=== PATIENT | male | born 1965 | race Caucasian/White ===

== ENCOUNTER 2016-08-02 05:17 | Inpatient (IN) | payer BC ==
[~2016-08-02] VITALS: Ht 182.9 cm; Wt 136.5 kg
--- NOTE | ~2016-08-02 | O ---
[facility] [place] [address] OPERATIVE REPORT Name: DONNA CERDA Room #: 417-I ADM IN M.R.#: [id number] Admission: 08/02/16 Attend Phys: Giovani Copeland MD, Discharge: Date of : 61 Report #: [id number] THIS REPORT FOR: //name// CC: Kena Copeland DATE OF SERVICE: 08/07/2016 PREOPERATIVE DIAGNOSES: Indwelling external tissue vp account director, status post complex abdominal wall reconstruction with bilateral component separation, adjacent tissue transfer, and utilization of biomesh in repair of an incarcerated recurrent incisional ventral hernia. POSTOPERATIVE DIAGNOSES: Indwelling external tissue vp account director, status post complex abdominal wall reconstruction with bilateral component separation, adjacent tissue transfer and utilization of biomesh in repair of an incarcerated recurrent incisional ventral hernia. PROCEDURE: Removal of external tissue vp account director. SURGEON: Giovani Copeland MD. DERIVATIVES TRADER: RUBIN Whitmore. ANESTHESIA: None. COMPLICATIONS: None. SPECIMENS: All removed external tissue expanders. INDICATIONS: The patient is a 51-year-old obese male, who is status post complex abdominal wall reconstruction procedure for a large incarcerated recurrent incisional ventral hernia with loss of abdominal domain. The patient has done exceptionally well postoperatively with tolerating p.o. intake, having bowel movements and pain control being under good control. As such, indication was for removal of the external tissue expanders postoperatively to evaluate his wound at this time. DESCRIPTION OF PROCEDURE: After explaining the risks, benefits, and alternatives of the procedure and obtaining consent, the patient remained in his hospital room, supine on his hospital bed. After conducting a thorough timeout procedure, verifying correct patient and procedure, the patient's abdomen was prepped and draped in the standard surgical sterile fashion. Sterile suture scissors were used to cut the sutures of the automatic tensioner devices that were laced through the anchors that lined the wound longitudinally. This allowed each of the tensioner devices to be unwoven from the anchors, and then [address] [address] OPERATIVE REPORT Name: DONNA CERDA Room #: 417-I [facility] IN ..#: [id number] Admission: 08/02/16 Attend Phys: Giovani Copeland MD, Discharge: Date of : 61 Report #: [id number] were passed off the field. A sterile staple remover was then used to remove all of the kristine that affixed the anchors to the abdominal wall, and then the anchors themselves were gently lifted out of the abdominal wall in standard fashion. This left a longitudinal midline wound that was healthy without erythema, induration, necrosis, or drainage. The wound was then dressed with sterile Telfa, Medipore tape, and his abdominal binder was replaced. At the end of the procedure, all instrument, needle, and sponge counts were correct. The patient tolerated the procedure without incident, where he remained in his hospital bed in stable condition with no apparent complications. <ELECTRONICALLY SIGNED> By: Giovani Copeland MD, FACS 08/07/16 1228 [id number] Giovani Copeland MD, FACS /nt
--- NOTE | ~2016-08-02 | S ---
[facility] [place] [address] SURGICAL PATH RPT PROCEDURE Name: DONNA CERDA Room #: 417-I ADM IN M.R.#: [id number] Admission: 08/02/16 Date of : 61 Discharge: Report #: [id number] Path Case #: [id number] PATHOLOGY REPORT COLLECTION DATE: 08/02/2016 RECEIVED DATE: 08/02/2016 SUBMITTING PHYS: Dr. Giovani Copeland OTHER PHYS: Dr. Shemar Mejia SPECIMEN(S) RECEIVED: A.Ventral hernia sac B.Old scar and skin (abdomen) * * * * * * * * * * * * FINAL DIAGNOSIS: A. Ventral hernia sac: - Dense fibrovascular connective tissue along with fibroadipose connective tissue showing reactive changes, compatible with hernia sac. B. Skin, old abdominal scar and skin, excision: - Dense collagen underneath skin, compatible with the provided history of scar. (IUV:csd; d/t: 08/05/2016) PATHOLOGIST: Kerry Canas M.D. REPORT ELECTRONICALLY SIGNED BY: Kerry Canas M.D. DATE/TIME: 08/05/2016 16:39 * * * * * * * * * * * * GROSS PATHOLOGY: A. Received in formalin labeled "Donna Cerda, ventral hernia sac," are multiple pieces of fibroadipose tissue with attached fibromembranous tissue measuring 14.9 x 12.2 x 5.5 cm. No nodules or lesions are identified. Beet Flumer tissue is submitted in cassette A1. B. The specimen is received in formalin labeled "Donna Cerda, old abdominal scar and skin". Received are multiple irregular segments of white-escalona, smooth to wrinkled skin with attached yellow-escalona fibroadipose tissue measuring 20.2 x 8.5 x 3.5 cm in aggregate dimensions. Sectioning reveals bright yellow, lobulated cut surfaces throughout with no grossly distinct nodules or lesions. The specimen is submitted representatively in cassette B1. (CAA; 08/02/2016) [address] [address] SURGICAL PATH RPT PROCEDURE Name: DONNA CERDA Room #: 417-I ADM IN M.R.#: [id number] Admission: 08/02/16 Date of : 61 Discharge: Report #: [id number] Path Case #: [id number] CLINICAL HISTORY: Incisional ventral hernia INITIAL CPT CODE(S): A; 01711 B; 98273 Professional services performed by [facility] [address], [place] [address] Technical services performed by [facility] at [address] [place] [address], [facility] [address] [address]. [facility] [address] [place] [address] PHONE: [phone] DIRECTOR: Denver Mclean M.D. * * * END OF REPORT * * *
--- NOTE | ~2016-08-02 | H ---
[facility] [address] [place] [address] HISTORY AND PHYSICAL Name: DONNA CERDA Room #: 417-I ADM IN M.R.#: [id number] Admission: 08/02/16 Attend Phys: Giovani Copeland MD, Discharge: Date of : 61 Report #: [id number] THIS REPORT FOR: //name// For History and Physical, please see office documentation/handwritten note in the patient's medical record. <ELECTRONICALLY SIGNED> By: Giovani Copeland MD, MARILYN 08/05/16 1504 1036 Giovani Copeland MD, FACS /jr
--- NOTE | ~2016-08-02 | O ---
[facility] [place] [address] OPERATIVE REPORT Name: DONNA CERDA Room #: 417-I ADM IN M.R.#: [id number] Admission: 08/02/16 Attend Phys: Giovani Copeland MD, Discharge: Date of : 61 Report #: [id number] THIS REPORT FOR: //name// CC: Kena Copeland DATE OF SERVICE: 08/02/2016 PREOPERATIVE DIAGNOSES: 1. Incarcerated recurrent incisional ventral hernia with loss of abdominal domain. 2. Intermittent abdominal pain. 3. Suspected intra-abdominal adhesions. 4. Morbid obesity with a body mass index of 47.01. 5. Hypertension. POSTOPERATIVE DIAGNOSES: 1. Incarcerated recurrent incisional ventral hernia with loss of abdominal domain. 2. Intermittent abdominal pain. 3. Dense and significant intra-abdominal adhesions. 4. Morbid obesity with a body mass index of 47.01. 5. Hypertension. PROCEDURES PERFORMED: 1. Exploratory laparotomy. 2. Extensive lysis of adhesions lasting 220 minutes. 3. Partial omentectomy. 4. Excisional debridement of ischemic abdominal wall fascia with removal of synthetic foreign body material. 5. Complex abdominal wall reconstruction, with open repair of an incarcerated recurrent incisional ventral hernia in the Britt-Stoppa technique utilizing a biomesh retrorectus underlay, measuring 30 x 30 cm in dimension. 6. Bilateral component separation of the transversus abdominis rectus (TAR) release of the anterior abdominal wall to assist in fascial closure. 7. Adjacent tissue transfer closure of the anterior abdominal wall to achieve complete wound closure with the wound ultimately measuring 38.5 x 34.5 cm in dimension (1328.25 square cm). 8. Placement of an external tissue defensive secondary coach device (DermaClose). 9. This is a Modifier 22 procedure. For extreme difficulty of the procedure secondary to the patient's extremely large recurrent incarcerated incisional ventral hernia that had loss of abdominal domain. This necessitated complex abdominal wall closure techniques with bilateral component separation and adjacent tissue transfers secondary to the necessity of contouring the abdominal wall in this morbidly obese patient with a very thick abdominal wall. This is in addition to the extensive lysis of adhesions of greater than 3 hours, as well [address] [address] OPERATIVE REPORT Name: DONNA CERDA Room #: 417-I ADM IN .R.#: [id number] Admission: 08/02/16 Attend Phys: Giovani Copeland MD, Discharge: Date of : 61 Report #: [id number] as the total operative time being nearly 5-1/2 hours as opposed to the usual 60-75 minute open ventral hernia repair and is owed to the overall severe complexity of the procedure. SURGEON: Giovani Copeland M.D. AUTOMATIC PRESSER: Shemar Reyes M.D. SEC[employer]CHO[employer] CROSSING GUARD: RUBIN Whitmore. ANESTHESIA: General endotracheal anesthesia. ESTIMATED BLOOD LOSS: 100 mL. COMPLICATIONS: None appreciated. SPECIMENS: 1. Excised ischemic abdominal wall fascia and hernia sac with synthetic foreign body material to pathology. 2. Partial omentectomy specimen to pathology. 3. Skin from the anterior abdominal wall to pathology. INDICATIONS: The patient is a 51-year-old morbidly obese male, who has had a complex post-surgical history that began when he underwent exploratory laparotomy for repair of an incarcerated umbilical hernia with mesh. Unfortunately, the patient's mesh caused problems where he reports he had erosion into small bowel, thereby necessitating repeat open exploration with explantation of the mesh and numerous suture repairs of his small bowel. Since that time, the patient developed a very large recurrent incisional ventral hernia with loss of abdominal domain, and after aggressive weight loss during his preoperative workup, indication was for the above-mentioned procedures today with ultimate closure via complex abdominal wall reconstruction procedure. DESCRIPTION OF PROCEDURE: After explaining the risks, benefits, and alternatives of the procedure with the patient in detail in the preoperative holding area and obtaining written consent, the patient was brought to the operating room and placed supine on the operating room table. After conducting a thorough timeout procedure verifying correct patient and procedure, the patient was given general endotracheal anesthesia. Once adequate anesthesia was obtained, his SCDs were hooked up to the pneumatic compression device. He was given a preoperative dose of antibiotics in line with the SCIP protocol. The patient had a Gonzáles catheter placed, and his abdomen was prepped and draped in the standard surgical sterile fashion. A #10 bladed scalpel was used to circumferentially excise his longitudinal midline wound from the subxiphoid location to the suprapubic location. Electrocautery was used to carry this down through skin and subcutaneous tissues and resect the actual skin paddle which [address] [address] OPERATIVE REPORT Name: DONNA CERDA Room #: 417-I [facility] IN ..#: [id number] Admission: 08/02/16 Attend Phys: Giovani Copeland MD, Discharge: Date of : 61 Report #: [id number] was passed off the field as specimen. Electrocautery was then used to carry the incision down through skin and subcutaneous tissues to ensure hemostasis until I arrived upon the level of the abdominal wall. I entered the abdominal wall in this most cephalad position in the subxiphoid location, and a finger was placed through the obvious incisional ventral hernia, which had incarcerated omentum contained within it, and I was able to open the entire fascial incision in a controlled fashion, utilizing a finger in the abdomen to prevent injury to underlying structures. The patient did have numerous loops of small bowel, colon, and omentum plastered to the posterior aspect of the anterior abdominal wall throughout, and I proceeded to open the longitudinal midline wound with delicate dissection to ensure no damage to the underlying structures, which necessitated a combination of electrocautery and Metzenbaum scissor dissection. Any time I was near a loop of bowel, cold dissection was undertaken with Metzenbaum scissors to prevent injury. Once the entire fascial incision was opened down the midline. I proceeded to evaluate the abdominal wall. The patient had one extremely large recurrent incisional ventral hernia, which contained mainly omentum and numerous loops of small bowel. The small bowel was tethered throughout, and I continued lysis of adhesions to free the entirety of the abdominal wall from all adhesions. Once all of the adhesions had been taken down, there was a small amount of nonviable omentum, which was resected with LigaSure impact device and passed off the field as specimen. The patient did have a large amount of synthetic this foreign body material suspected to be both suture material and numerous metal screws consistent with a ProTack device from prior repairs down the midline, and all synthetic material was resected with electrocautery, which included a formal debridement of all ischemic nonviable abdominal wall fascia back to healthy vascularized fascia throughout. All excised tissue was removed and passed off the field as specimen. At this juncture, I proceeded to run the small bowel from the ligament of Treitz distally, in a uptp-duhd-[id number] fashion, taking down all interloop adhesions in the same careful fashion to ensure no enterotomies or serosal defects. Once all of these adhesions were taken down, we proceeded to run the small bowel, three additional times from the ligament of Treitz distally to the ileocecal valve and back again. There was one area of a questionable serosal defect, that we felt was more likely a scar; however, I did elect to oversew this using three separate 3-0 PDS sutures in standard Lembert fashion to be safe. These were placed transversely so as not to narrow the lumen of the bowel in any way. Finger palpation of the bowel at this juncture showed a widely patent lumen. The colon was identified and was healthy throughout. I now proceeded to place Lisa clamps along the fascial edges on both sides and attempts at medial mobilization showed difficulty bringing the fascia together at the midline, and if accomplished, it would be under extreme tension, which is a risk factor for recurrent wound dehiscence and hernia formation. I, therefore, elected to perform a complex abdominal wall closure with bilateral component separation to prevent recurrent herniation. I then proceeded to create circumferential skin flaps along the level of the fascia externally, carrying this back 4 cm in all directions outside the fascial edges, and this was performed ensuring that we [address] [address] OPERATIVE REPORT Name: DONNA CERDA Room #: 417-I ADM IN M.R.#: [id number] Admission: 08/02/16 Attend Phys: Giovani Copeland MD, Discharge: Date of : 61 Report #: [id number] preserved all perforating vessels encountered. Now that I had performed debridement of all nonviable fascia and created skin flaps circumferentially. I elected to proceed with a TAR, bilateral component separation. I utilized electrocautery to incise the posterior rectus sheath 0.5 cm medial to the semilunaris to expose the medial edge of the transversus abdominis muscle bilaterally. Muscle was divided, allowing entrance into the space, which was then dissected as far laterally on both sides as possible. The rectus fascia was then advanced medially, and this was extended approximately 30 cm in craniocaudal dimension bilaterally, and was taken as far laterally as possible. This allowed for significant medial mobilization throughout the entirety of the wound, and we were able to bring the fascia together at the midline at this juncture. I now proceeded to repair the recurrent incarcerated incisional ventral hernia in the Britt-Stoppa fashion after performing the bilateral TAR release. I closed the posterior rectus fascia using looped #1 PDS suture in standard running fashion from inferior to superior aspects. This was run 2/[address] up where I proceeded to start a second loop #1 PDS suture in the subxiphoid location, and ran this inferiorly to where the two sutures met. The needle were cut off, and the two sutures were tied together closing the entire posterior rectus sheath. I now selected a piece of Strattice biologic mesh that measured 30 x 30 cm in dimension. This gave us excellent overlap laterally outside of the hernia defect, as well as at least 5 cm overlap in both the superior and inferior aspects. The mesh was oriented in the retrorectus space in a helene configuration to allow for this excellent overlap, and I proceeded to utilize numerous sutures of #1 PDS to anchor this into place. This was accomplished by placing the sutures through the abdominal wall, through the biologic mesh, back up through the biologic mesh and through the abdominal wall, where the sutures were then individually tied on the patient's right lateral aspect of the midline fascial wound. The mesh had been contoured to the defect at its corners to ensure no rippling of the mesh when the fascial edges were reapproximated down the midline. Each of these transfascial sutures on the right side again were tied down sequentially and attempts at medializing the anterior rectus fascia was carried out while placing the numerous sutures in the left flank to ensure that the biologic mesh remained taut throughout. The 4 sutures placed in the left flank were not tied down but were tagged with hemostats at this juncture. This gave us excellent orientation of the biologic mesh which would be a taut buttress for the retrorectus repair from the TAR component separation bilaterally. I now placed a single 19-Turkish round Aguila-Ruff drain in the space immediately anterior to the biologic mesh and posterior to the anterior rectus fascia, which was then brought out in the suprapubic location. This was anchored to the skin using 2-0 nylon in standard fashion. I now proceeded to close the anterior rectus fascial defect using looped #1 PDS sutures in standard running fashion starting at the position in the suprapubic location and running it superiorly, 2/[address]. I then started a second loop #1 PDS suture in the subxiphoid location and ran this inferiorly to where it met with the other suture, where the needle were cut off, and the sutures were tied together, completing the complex abdominal wall [address] [address] OPERATIVE REPORT Name: DONNA CERDA Room #: 417-I ADM IN M.R.#: [id number] Admission: 08/02/16 Attend Phys: Giovani Copeland MD, Discharge: Date of : 61 Report #: [id number] repair. As I had created skin flaps circumferentially using electrocautery by clearing fascia circumferentially and carried the dissection superiorly, inferiorly, and laterally as much as possible. This left a large abdominal wall defect in this morbidly obese patient that measured 38.5 x 34.5 cm in dimension. All perforating vessels were preserved throughout the dissection as previously stated. I now proceeded to place two additional 19-Turkish round Aguila-Urff drains in the subcutaneous space with the first drain emanating from the right lower quadrant, crossing over the midline and running up the left flank, and the second drain emanating from the left lower quadrant, crossing over the midline, and as low as possible and running up the right flank. Each of these were anchored to the skin and in similar fashion using 2-0 nylon in standard fashion. I now irrigated the subcutaneous space and hemostasis was assured. I now proceeded to close the skin and subcutaneous tissues, which required complex adjacent tissue transfer techniques to allow for complete soft tissue coverage over the abdominal wall. This was secondary to extreme thinning of the patient's skin and subcutaneous tissues where the large hernia had resided. A marking pen was used to werner out appropriate skin resection lines and then a #10 bladed scalpel was used to resect the skin. Electrocautery was used for hemostasis, and all skin that was resected was passed off the field as specimen, along with the initial scar that was resected. There was still a segment of skin. That was quite thin at the mid portion of the longitudinal wound, and as such, I made relaxing incisions internally along the large skin flaps and rotated the subcutaneous tissues medially to cover the anterior fascial repair. I then reapproximated the edges of dermis and placed numerous sutures of 3-0 Vicryl in an inverted interrupted fashion to close the fascial tissues over the underlying fascia. The skin wound was then closed using the Insorb absorbable subcuticular stapling device. The entire midline wound was under a slight amount of tension after closure, and as such, I did elect to place an external tissue defensive secondary coach device (DermaClose) to help obtain complete wound closure down the midline, that was not under any undue tension, which is a significant risk factor for wound dehiscence, especially in this patient with obvious wound healing difficulties and morbid obesity. The DermaClose device was then placed utilizing skin anchors to line the wound longitudinally at 3 cm intervals, circumferentially around the longitudinal skin wound ensuring that we had at least 4 cm of healthy tissue, between the edges of the anchors and the longitudinal midline wound itself. This took 9 anchors on each side, and once all the anchors were placed, they were stapled to the skin using a skin stapler. Telfa gauze was then placed overlying the skin wound, and I proceeded to utilize four separate automatic tensioner devices, which were then laced appropriately through the anchors and ratcheted down. Once these were tightened down and activated, there were locked in place, and this applied uniform tension across the entirety of the longitudinal midline wound, and kept it closed without undue tension at the level of the subcuticular kristine themselves. This allowed us to offload tension at the kristine, and distribute it circumferentially around the wounds 4 cm away on each side. These were then left in place to act as a bolster, and DuoDERM was placed on the skin underneath [address] [address] OPERATIVE REPORT Name: DONNA CERDA Room #: 417-I ADM IN .R.#: [id number] Admission: 08/02/16 Attend Phys: Giovani Copeland MD, Discharge: Date of : 61 Report #: [id number] each of the tensioner devices to prevent maceration of the skin. Sterile dressings were then applied using ABDs, Medipore tape, and an abdominal binder. At the end of extremely lengthy procedure, all instrument, needle, and sponge counts were correct. The patient tolerated the procedure without incident, where he was awakened in the operating room and transitioned to the recovery room in stable condition with no apparent complications. The patient made excellent clear dilute urine throughout the entirety of the case and had no increased peak airway pressures throughout. <ELECTRONICALLY SIGNED> By: Giovani Copeland MD, FACS 08/03/16 0959 21 27 Giovani Copeland MD, FACS /nt
[~2016-08-02 05:17] MED LIST: HYDROCODON-ACE1 EAC8 PO; MOBIC15 MG PO; PRINIVIL20 M1 PO; SERTRALINE HCL100 MG PO; VYTORIN 10-401 EACH PO
[2016-08-02 07:00] VITALS: BP 132/88
[2016-08-02 16:00] VITALS: BP 106/77
[2016-08-02 16:30] VITALS: BP 118/80
[2016-08-02 17:00] VITALS: BP 120/81
[2016-08-02 18:00] VITALS: BP 127/79
[2016-08-02 20:00] VITALS: BP 106/69
[2016-08-03 04:00] VITALS: BP 137/75
[2016-08-03 04:07] LABS: HEMATOCRIT 42.9 % (42.0-52.0); HEMOGLOBIN 14.2 gm/dL (14.0-18.0); MCH 28.4 pg (26.0-34.0); MCV 86.2 fL (80.0-100.0); RBC 4.98 mil/uL (4.50-6.00); RDW 14.3 % (10.5-14.5)
[2016-08-03 04:20] LABS: CREATININE 1.1 mg/dL (0.6-1.3); POTASSIUM 5.9 mmol/L (3.5-5.1)
[2016-08-03 08:00] VITALS: BP 122/65
[2016-08-03 15:57] VITALS: BP 117/71
[2016-08-03 17:44] LABS: CALCIUM 7.8 mg/dL (8.5-10.1); CREATININE 1.1 mg/dL (0.6-1.3)
[2016-08-03 17:49] LABS: POTASSIUM 4.8 mmol/L (3.5-5.1)
[2016-08-03 20:00] VITALS: BP 132/75
[2016-08-04] VITALS: BP 119/78
[2016-08-04 04:00] VITALS: BP 109/67
[2016-08-04 06:08] LABS: HEMATOCRIT 36.5 % (42.0-52.0); MCH 28.2 pg (26.0-34.0); MCHC 32.4 g/dL (28.0-37.0); MCV 87.1 fL (80.0-100.0); PLATELET COUNT 231 thou/uL (150-400); RBC 4.19 mil/uL (4.50-6.00); RDW 14.6 % (10.5-14.5); WBC 18.7 thou/uL (4.0-11.0)
[2016-08-04 06:10] LABS: CALCIUM 8.1 mg/dL (8.5-10.1); CREATININE 1.1 mg/dL (0.6-1.3); POTASSIUM 5.3 mmol/L (3.5-5.1)
[2016-08-04 06:15] LABS: MANUAL DIFF YES
[2016-08-04 06:17] LABS: HEMOGLOBIN 11.8 gm/dL (14.0-18.0)
[2016-08-04 06:35] LABS: ABSOLUTE NEUTROPHILS 15.7 thou/uL (1.4-8.2); ATYPICAL LYMPHS 1 %; TOTAL CELL COUNT 100
[2016-08-04 07:20] VITALS: BP 131/61
[2016-08-04 15:51] VITALS: BP 129/73
[2016-08-04 20:00] VITALS: BP 136/90
[2016-08-05 04:00] VITALS: BP 144/93
[2016-08-05 06:06] LABS: HEMATOCRIT 30.6 % (42.0-52.0); HEMOGLOBIN 10.2 gm/dL (14.0-18.0); MCH 28.7 pg (26.0-34.0); MCHC 33.3 g/dL (28.0-37.0); MCV 86.2 fL (80.0-100.0); PLATELET COUNT 207 thou/uL (150-400); RBC 3.55 mil/uL (4.50-6.00); RDW 14.6 % (10.5-14.5); WBC 14.7 thou/uL (4.0-11.0)
[2016-08-05 06:27] LABS: MANUAL DIFF YES
[2016-08-05 06:34] LABS: CREATININE 0.9 mg/dL (0.6-1.3); POTASSIUM 4.2 mmol/L (3.5-5.1)
[2016-08-05 07:00] VITALS: BP 126/84
[2016-08-05 07:59] LABS: ABSOLUTE NEUTROPHILS 12.2 thou/uL (1.4-8.2); ANISOCYTOSIS SLIGHT; POLYCHROMASIA OCCASIONAL; TOTAL CELL COUNT 100
[2016-08-05 13:39] VITALS: BP 138/81
[2016-08-05 15:46] VITALS: BP 143/91
[2016-08-05 20:00] VITALS: BP 135/70
[2016-08-06 04:46] VITALS: BP 147/98
[2016-08-06 07:38] VITALS: BP 137/74
[2016-08-06 18:34] VITALS: BP 152/98
[2016-08-06 20:00] VITALS: BP 156/107
[2016-08-07 04:49] VITALS: BP 140/77
[2016-08-07 08:58] VITALS: BP 163/88
[2016-08-07 15:12] VITALS: BP 133/68
[2016-08-07 20:00] VITALS: BP 133/71
[2016-08-08 04:00] VITALS: BP 134/78
[2016-08-08 07:18] VITALS: BP 125/74
[2016-08-08 16:50] VITALS: BP 156/91
[2016-08-08 20:00] VITALS: BP 157/86
[2016-08-09 04:30] VITALS: BP 152/97
[2016-08-09 07:46] VITALS: BP 121/83
[2016-08-09] MEDS ORDERED: PERCOCET PO (08:50)
[2016-08-09 09:21] VITALS: BP 121/83
[2016-08-09 10:02] VITALS: BP 121/83
[2016-08-09 13:06] VITALS: BP 121/83
== END 2016-08-09 13:44 | disposition home health service (06) | DRG 336 ==
LOC: 4E 05:17 → TBA 05:17 → PRE 09:05 → 4E 16:32
PROVIDERS: Surgery
PROC: 0JB80ZZ Excision of Abdomen Subcutaneous Tissue and Fascia, Open Approach (ICD-10-PCS; principal; 2016-08-02)
PROC: 0WUF0JZ Supplement Abdominal Wall with Synthetic Substitute, Open Approach (ICD-10-PCS; principal; 2016-08-02)
PROC: 0KXL0Z6 Transfer Left Abdomen Muscle, Transverse Rectus Abdominis Myocutaneous Flap, Open Approach (ICD-10-PCS; principal; 2016-08-02)
PROC: 0KXK0Z6 Transfer Right Abdomen Muscle, Transverse Rectus Abdominis Myocutaneous Flap, Open Approach (ICD-10-PCS; principal; 2016-08-02)
PROC: 0DBS0ZZ (ICD-10-PCS; principal; 2016-08-02)
PROC: 0JH80NZ Insertion of Tissue Expander into Abdomen Subcutaneous Tissue and Fascia, Open Approach (ICD-10-PCS; principal; 2016-08-02)
PROC: 0DNW0ZZ Release Peritoneum, Open Approach (ICD-10-PCS; principal; 2016-08-02)
PROC: 0JP Subcutaneous Tissue and Fascia, Removal (ICD-10-PCS; 2016-08-07)
DX: K43.0 Incisional hernia with obstruction, without gangrene (principal); Z68.41 Body mass index [BMI] 40.0-44.9, adult; K66.0 Peritoneal adhesions (postprocedural) (postinfection); E66.01 Morbid (severe) obesity due to excess calories; I10 Essential (primary) hypertension; Z88.0 Allergy status to penicillin; Z88.6 Allergy status to analgesic agent; Z28.21 Immunization not carried out because of patient refusal
CPT/HCPCS: 10183; 50010; 50093; 50101; 50331; 50386; 50455; 50648; 50994; 51114; 54124; 56524; 56525; 56527; 56530; 57092; 62110; 62900; 65002; 65075; 70005

== ENCOUNTER 2016-09-05 02:26 | Inpatient (IN) | payer BC ==
[~2016-09-05] VITALS: Ht 182.9 cm; Wt 127.0 kg
[2016-09-05] VITALS (17 sets, daily range): BP systolic 100–152; BP diastolic 62–85
--- NOTE | ~2016-09-05 | HC ---
[facility] [place] [address] [address] CONSULTATION Name: DONNA CERDA Room #: 302-P ADM IN M.R.#: [id number] Admission: 09/05/16 Attend Phys: Asher Gross DO Discharge: Date of : 61 Report #: [id number] THIS REPORT FOR: //name// CC: Kena Gross DATE OF CONSULTATION: 09/09/2016. PERSON REQUESTING: Dr. Giovani Copeland. CHIEF COMPLAINT: Abdominal wall wound. HISTORY OF PRESENT ILLNESS: This is a pleasant white male who is status post complex abdominal wall reconstruction on 08/02/2016. The patient states postoperatively he did quite well, but over the past several days, he noticed he was started to have onset of nausea, vomiting, low grade fevers. The patient also was noted he had increased drainage out of his right lower quadrant drain site. The patient states that his left side drain site fell out a few days ago. The patient states he also notes a slight odor. He started to vomit and a low grade fever. At that time, [place], went to [facility] where a abdominal CAT scan shows a large fluid collection and patient was transferred here for further evaluation. This morning, the patient was up in ambulatory and then recently, the patient was scheduled to have a second catheter placed in interventional radiology however patient has developed a spontaneously draining wound to the central portion of his abdominal wall with copious amounts of drainage coming from the wound itself. I have been asked to assist in the care of the wound at this time. The patient denies any other associated wounds that he could not heal on his own. The patient states since the wound started to drain he actually feels somewhat better. The patient denies any fevers or chills at this time, the past 24 hours. The patient states he has no associated nausea, vomiting. PAST MEDICAL HISTORY: Morbid obesity, hypertension and is status post a complex abdominal wall surgical repair secondary to ventral hernia. CURRENT MEDICATIONS: Multiple, reviewed the patient's medication list. The patient is on IV antibiotics. ALLERGIES: PENICILLIN, MORPHINE AND LATEX. SOCIAL HISTORY: The patient does not smoke or drink alcohol. Lives with his . FAMILY HISTORY: Not pertinent to current medical condition. REVIEW OF SYSTEMS: CONSTITUTIONAL: The patient complains of low-grade fevers and chills over the [facility] [address] [place] [address] CONSULTATION Name: DONNA CERDA Room #: 302-P ADM IN M.R.#: [id number] Admission: 09/05/16 Attend Phys: Asher Gross DO Discharge: Date of : 61 Report #: [id number] past several days, but none in the past 24 hours. NEUROLOGIC: The patient complains of overall mild weakness, but generalized weakness, but no isolated weakness in arms or legs. EYES: No complaints. ENT: No complaints. CARDIAC: The patient denies chest pain, palpitations, peripheral edema. RESPIRATORY: The patient denies shortness of breath, cough, wheezes. GASTROINTESTINAL: The patient has nausea, vomiting and some abdominal pain several days ago, this is however subsequently subsided. GENITOURINARY: The patient denies urgency or frequency. MUSCULOSKELETAL: No complaints. SKIN: There is an open wound on the central portion of the abdominal wall which is a spontaneous wound along the surgical incision as well as two lower abdominal wall wounds, which are dressed with fresh dressings. EXTREMITIES: The patient moves all extremities without difficulty. PHYSICAL EXAMINATION: VITAL SIGNS: Stable. The T-max about 36.9. GENERAL: This is an alert and oriented x 3, obese white male who is in no acute distress. HEENT: Normocephalic, atraumatic. Mucous membranes are somewhat dry. Pupils are round. Sclerae white. NECK: Without JVD or masses. BACK: Nontender. LUNGS: Clear. HEART: Regular, without murmur. ABDOMEN: Obese, soft with midline wound, a surgical incision site, which measures approximately 1 cm x 1 cm that depth according to the nurses, it was approximately 3.5-4 cm. There is copious amount of seropurulent drainage noted; however, there is no odor. Periwound itself is without erythema, warmth or actual tenderness. The rest of the abdomen was essentially nontender without rebound or guarding. EXTREMITIES: The patient moves all extremities without difficulty. NEUROLOGIC: Cranial nerves 2-12 are grossly intact. Motor and sensory grossly intact. LABORATORY DATA: White cell count 8.2, hemoglobin 10.8. Electrolytes within normal limits. BUN 3, creatinine 0.8, albumin was low at 2.2. WOUND CARE COURSE: I spoke at length with the patient at this point in time. I might consider using a wound VAC therapy to see if we can get closure of this abdominal wall wound. CT, I reviewed the CT scan, which performed yesterday, which showed significant amount of intraabdominal wall fluid collection above the fascia. I talked to the patient about doing Dakin's packing for the next 24 hours pending on decision about doing the abdominal wound VAC, which would help control the edema. Also I told the patient we maximize his protein [address] [address] CONSULTATION Name: DONNA CERDA Room #: 302-P ADM IN MSon#: [id number] Admission: 09/05/16 Attend Phys: Asher Gross DO Discharge: Date of : 61 Report #: [id number] supplementation for healing. ASSESSMENT AND PLAN: 1. Abdominal wall wound long surgical incision site with copious amounts of seropurulent drainage. 2. Status post ventral hernia, status post about complex abdominal wall reconstruction secondary to recurrent ventral hernia. 3. Morbid obesity. 4. Hypertension. 5. Protein calorie malnutrition, severe with albumin 2.7. PLAN: Described in length as above. We will continue to follow the patient. We will contact upper caser in the morning about setting up a home wound VAC therapy as well as home health nurses to be setup as well. I appreciate the ability to consult on this patient. We look forward to following him. By: [id number] Prince Polk MD /nt
--- NOTE | ~2016-09-05 | P ---
[facility] [place] [address] [place] [address] PROCEDURE REPORT Name: DONNA CERDA Room #: 302-P [facility] IN M.R.#: [id number] Admission: 09/05/16 Attend Phys: Joleen Romero MD Discharge: 09/10/16 Date of : 61 Report #: [id number] THIS REPORT FOR: //name// CC: Kena Romero DATE OF SERVICE: 09/10/2016 PROCEDURE NOTE: I and D of abdominal wall abscess. PERSONAL PHYSICIAN: Joleen Romero MD Reason for I and D is abdominal wall abscess status post ventral wall hernia repair and extensive abdominal wall reconstructive surgery. PREPROCEDURE DIAGNOSES: 1. Abdominal wall cellulitis. 2. Status post ventral hernia repair with extensive abdominal wall reconstruction. POSTPROCEDURE DIAGNOSES: 1. Abdominal wall cellulitis. 2. Status post ventral hernia repair with extensive abdominal wall reconstruction. DESCRIPTION OF PROCEDURE: After timeout was taken, verbal consent was obtained. The patient had incision and drainage of abdominal wall abscess abdominal wall incision after instillation of 1% lidocaine with epinephrine for a total of 5 mL. A #10 blade and forceps were used for the incision and drainage. With palpation of the central portion of the wound, a loose surgical suture was found. This was removed without difficulty. Fascia was intact. The wound was irrigated copiously with Dakin solution. Moderate amount of purulent material was removed with irrigation. Palpation of the wound revealed no further tunneling, tracking or undermining. Bleeding was moderate, controlled with pressure and silver nitrate cauterization as well as Surgicel packing after which there was no further bleeding. Post-debridement measurements were 3.9 x 2.5 x 6.0 cm for a total of less than 20 square cm of total incision and drainage of the abscess. Packing was then performed with Dakin's moist gauze, covered with an ABD. The patient tolerated the procedure well. No other further complications were noted. We will plan wound VAC on this abdominal wall wound in the next 1-2 days. By: [id number] Prince Polk MD /alexandria
[~2016-09-05 02:26] MED LIST changes: +PERCOCET PO
[2016-09-05] MEDS ORDERED: AUGMENTIN 875875 MG PO (03:31)
[2016-09-05] MEDS ORDERED: PROBIOTIC1 EAC1 PO (03:31)
[2016-09-05] MEDS ORDERED: IRON325 PO (03:32)
[2016-09-05] MEDS ORDERED: PHENERGAN 25 MG25 M1 PO (03:33)
[2016-09-05] MEDS ORDERED: ACETAMINOPHEN325 M1 PO (03:34)
[2016-09-05] MEDS ORDERED: COLACE 100 MG100 MG PO (03:36)
[2016-09-05 06:14] LABS: HEMOGLOBIN 11.2 gm/dL (14.0-18.0); MCH 27.4 pg (26.0-34.0); MCHC 32.8 g/dL (28.0-37.0); MCV 83.6 fL (80.0-100.0); RBC 4.07 mil/uL (4.50-6.00); RDW 13.8 % (10.5-14.5); WBC 12.7 thou/uL (4.0-11.0)
[2016-09-05 06:28] LABS: INR 1.2; PROTIME 12.8 Seconds (9.3-11.4)
[2016-09-05 06:30] LABS: ALBUMIN 2.2 g/dL (3.4-5.0); CALCIUM 8.2 mg/dL (8.5-10.1); POTASSIUM 4.4 mmol/L (3.5-5.1); TOTAL BILIRUBIN 0.5 mg/dL (<0.1-1.0); TOTAL PROTEIN 7.1 g/dL (6.4-8.2)
[2016-09-06 03:55] VITALS: BP 100/72
[2016-09-06 06:58] LABS: HEMATOCRIT 34.4 % (42.0-52.0); HEMOGLOBIN 11.3 gm/dL (14.0-18.0); MCH 27.8 pg (26.0-34.0); MCHC 32.7 g/dL (28.0-37.0); MCV 84.8 fL (80.0-100.0); PLATELET COUNT 215 thou/uL (150-400); RBC 4.05 mil/uL (4.50-6.00); RDW 13.2 % (10.5-14.5); WBC 8.2 thou/uL (4.0-11.0)
[2016-09-06 07:03] LABS: MANUAL DIFF YES
[2016-09-06 07:12] LABS: CREATININE 0.8 mg/dL (0.7-1.3)
[2016-09-06 08:11] VITALS: BP 122/82
[2016-09-06 09:07] LABS: ABSOLUTE NEUTROPHILS 5.2 thou/uL (1.4-8.2); PLATELET ESTIMATE NORMAL; TOTAL CELL COUNT 100
[2016-09-06 11:23] VITALS: BP 118/70
[2016-09-06 19:40] VITALS: BP 133/78
[2016-09-07 03:50] VITALS: BP 120/81
[2016-09-07 08:00] VITALS: BP 129/86
[2016-09-07 12:00] VITALS: BP 125/83
[2016-09-07 17:00] VITALS: BP 136/88
[2016-09-07 20:00] VITALS: BP 132/95
[2016-09-08 04:00] VITALS: BP 141/96
[2016-09-08 04:22] LABS: HEMATOCRIT 33.4 % (42.0-52.0); HEMOGLOBIN 10.8 gm/dL (14.0-18.0); MCH 27.2 pg (26.0-34.0); MCHC 32.4 g/dL (28.0-37.0); PLATELET COUNT 263 thou/uL (150-400); RBC 3.98 mil/uL (4.50-6.00); RDW 13.7 % (10.5-14.5); WBC 8.2 thou/uL (4.0-11.0)
[2016-09-08 04:23] LABS: CALCIUM 8.3 mg/dL (8.5-10.1); CREATININE 0.8 mg/dL (0.7-1.3); POTASSIUM 3.6 mmol/L (3.5-5.1)
[2016-09-08 04:24] LABS: MANUAL DIFF YES
[2016-09-08 05:28] LABS: ABSOLUTE NEUTROPHILS 5.7 thou/uL (1.4-8.2); ANISOCYTOSIS SLIGHT; METAMYELOCYTES 1 %; MYELOCYTES 1 %; TOTAL CELL COUNT 100
[2016-09-08 08:00] VITALS: BP 128/91
[2016-09-08 12:00] VITALS: BP 130/95
[2016-09-08 16:00] VITALS: BP 124/91
[2016-09-08 19:59] VITALS: BP 148/99
[2016-09-09 04:22] VITALS: BP 136/91
[2016-09-09 06:14] LABS: CALCIUM 8.7 mg/dL (8.5-10.1); CREATININE 0.8 mg/dL (0.7-1.3); POTASSIUM 3.9 mmol/L (3.5-5.1)
[2016-09-09 08:00] VITALS: BP 136/91
[2016-09-09 08:47] VITALS: BP 135/93
[2016-09-09 15:17] VITALS: BP 142/93
[2016-09-09 20:00] VITALS: BP 148/93
[2016-09-10 04:00] VITALS: BP 128/88
[2016-09-10 06:55] LABS: HEMATOCRIT 33.9 % (42.0-52.0); HEMOGLOBIN 11.2 gm/dL (14.0-18.0); MCH 27.3 pg (26.0-34.0); MCHC 33.1 g/dL (28.0-37.0); MCV 82.5 fL (80.0-100.0); RBC 4.11 mil/uL (4.50-6.00); RDW 13.9 % (10.5-14.5); WBC 6.5 thou/uL (4.0-11.0)
[2016-09-10 07:11] LABS: CALCIUM 8.6 mg/dL (8.5-10.1); CREATININE 0.8 mg/dL (0.7-1.3); POTASSIUM 3.8 mmol/L (3.5-5.1)
[2016-09-10 09:00] VITALS: BP 126/80
[2016-09-10 12:17] VITALS: BP 126/80
[2016-09-10 12:34] VITALS: BP 123/83
== END 2016-09-10 16:10 | disposition home health service (06) | DRG 871 ==
LOC: 2N 02:26 → 3N 03:24
PROVIDERS: Family Medicine; Internal Medicine Endocrinology, Diabetes & Metabolism; Nurse Practitioner
PROC: 0W9F3ZZ Drainage of Abdominal Wall, Percutaneous Approach (ICD-10-PCS; principal; 2016-09-05)
DX: A41.9 Sepsis, unspecified organism (principal); E43 Unspecified severe protein-calorie malnutrition; L02.211 Cutaneous abscess of abdominal wall; R18.8 Other ascites; T81.4XXA Infection following a procedure, initial encounter; E66.01 Morbid (severe) obesity due to excess calories; I10 Essential (primary) hypertension; F41.9 Anxiety disorder, unspecified; K21.9 Gastro-esophageal reflux disease without esophagitis; E78.5 Hyperlipidemia, unspecified; K43.2 Incisional hernia without obstruction or gangrene; B99.9 Unspecified infectious disease; Z68.38 Body mass index [BMI] 38.0-38.9, adult; Z88.0 Allergy status to penicillin; Z88.6 Allergy status to analgesic agent; Z91.040 Latex allergy status; Z79.899 Other long term (current) drug therapy; Z90.49 Acquired absence of other specified parts of digestive tract
CPT/HCPCS: 10096

== ENCOUNTER → 2016-09-24 | Outpatient (CLI) | payer BC ==
[~2016-09-24] MED LIST changes: +ACETAMINOPHEN325 M1 PO; +AUGMENTIN 875875 MG PO; +COLACE 100 MG100 MG PO; +IRON325 PO; +PHENERGAN 25 MG25 M1 PO; +PROBIOTIC1 EAC1 PO
== END ==
LOC: HYPER 09-18 07:07
DX: T81.31XA Disruption of external operation (surgical) wound, not elsewhere classified, initial encounter (principal); I10 Essential (primary) hypertension; E66.01 Morbid (severe) obesity due to excess calories; Z68.36 Body mass index [BMI] 36.0-36.9, adult; Y83.8 Other surgical procedures as the cause of abnormal reaction of the patient, or of later complication, without mention of misadventure at the time of the procedure

== ENCOUNTER → 2016-10-17 | Outpatient (CLI) | payer BC | LOC: HYPER 07:10 | DX: T81.31XD Disruption of external operation (surgical) wound, not elsewhere classified, subsequent encounter (principal); I10 Essential (primary) hypertension; E66.01 Morbid (severe) obesity due to excess calories; Z68.36 Body mass index [BMI] 36.0-36.9, adult; Y83.8 Other surgical procedures as the cause of abnormal reaction of the patient, or of later complication, without mention of misadventure at the time of the procedure ==